=== PATIENT | female | born 2000 | race African-American/Black ===

== ENCOUNTER 2022-07-02 01:09 | Inpatient (IN) | payer OTHER ==
[~2022-07-02] VITALS: Ht 162.6 cm; Wt 64.0 kg
[2022-07-02 03:14] LABS: HEMATOCRIT. 28.5 % (36.0-48.0); HEMOGLOBIN. 9.2 g/dL (12.0-16.0); MEAN CORPUSCULAR HEMOGLOBIN 23.3 pg (28.0-32.0); MEAN PLATELET VOLUME 7.4 fl (7.4-10.4); PLATELET 424 x1000/uL (130-400); RED BLOOD CELL COUNT 3.96 mill/uL (4.2-5.4); RED CELL DISTRIBUTION WIDTH 17.1 % (11.6-14.6)
[2022-07-02 03:20] LABS: CLARITY URINE CLOUDY (CLEAR); COLOR URINE YELLOW (YELLOW); KETONES URINE TRACE (NEGATIVE); LEUKOCYTE ESTERASE URINE 2+ (NEGATIVE); NITRITE URINE NEGATIVE (NEGATIVE); OCCULT BLOOD URINE 3+ (NEGATIVE); PH URINE 6.5 (4.5-8.0); PROTEIN URINE 1+ (NEGATIVE); SPECIFIC GRAVITY URINE 1.019 (1.005-1.030)
[2022-07-02 03:27] LABS: CHLORIDE 106 mEq/L (98-107)
[2022-07-02 03:31] LABS: *AMPHETAMINES SCREEN URINE NEGATIVE (NEGATIVE); *BARBITURATES SCREEN URINE NEGATIVE (NEGATIVE); *BENZODIAZEPINES SCREEN URINE NEGATIVE (NEGATIVE); CANNABINOID URINE SCREEN NEGATIVE (NEGATIVE); METHADONE URINE SCREEN NEGATIVE (NEGATIVE); OPIATES URINE SCREEN NEGATIVE (NEGATIVE); PHENCYCLIDINE URINE SCREEN NEGATIVE (NEGATIVE)
[2022-07-02] MEDS: LACTATED RINGERS 1,000 ML IV SCH ×2 (03:36→07:07)
[2022-07-02 03:50] LABS: INR 0.9; PARTIAL THROMBOPLASTIN TIME 28.4 sec (23.4-31.0); PROTHROMBIN TIME 10.1 sec (9.6-11.0)
[2022-07-02 03:55] LABS: *COCAINE SCREEN URINE PRESUMTIVE POSITIVE (NEGATIVE)
[2022-07-02] MEDS ORDERED: AMPICILLIN 2GM in NS 100ML 100 ML IV SCH (05:15)
[2022-07-02] MEDS ORDERED: CARBOPROST TROMETHAMINE 250 MCG/ML AMPUL IM PRN (05:15)
[2022-07-02] MEDS ORDERED: METHYLERGONOVINE MALEATE 0.2 MG/ML IM PRN (05:15)
[2022-07-02] MEDS ORDERED: NALOXONE HCL 0.4 MG/ML 1ML VIAL IM PRN (05:15)
[2022-07-02] MEDS ORDERED: LACTATED RINGERS 1,000 ML IV SCH ×2 (05:15→13:00)
[2022-07-02] MEDS ORDERED: LIDOCAINE HCL 1% 20ML VIAL (Pyxis) INJ INFIL SCH (05:15)
[2022-07-02] MEDS ORDERED: BETAMETHASONE ACET/BETAMET 30 MG/5 ML VIAL IM ONE (05:30)
[2022-07-02] MEDS: MAGNESIUM 20 G PREMIX (L & D) 500 ML IV SCH ×4 (06:29→23:44)
[2022-07-02] MEDS: AZITHROMYCIN 500 MG in DEXT 5% WATER 250 ML IV SCH (07:21)
[2022-07-02 08:16] LABS: PLATELET ESTIMATE SLIGHTLY INCREASED
[2022-07-02] MEDS: AMPICILLIN 1,000 MG in SODIUM CHLORIDE 0.9% 50 ML IV SCH (12:29)
[2022-07-02 12:47] LABS: HEPATITIS B SURFACE ANTIGEN NEGATIVE
[2022-07-03] MEDS: AMPICILLIN 1,000 MG in SODIUM CHLORIDE 0.9% 50 ML IV SCH ×4 (05:40→21:21)
[2022-07-03] MEDS ORDERED: BETAMETHASONE ACET/BETAMET 30 MG/5 ML VIAL IM ONE (06:15)
[2022-07-03] MEDS: AZITHROMYCIN 500 MG in DEXT 5% WATER 250 ML IV SCH (06:33)
[2022-07-03] MEDS: LACTATED RINGERS 1,000 ML IV SCH ×2 (09:23→21:22)
[2022-07-03] MEDS ORDERED: LIDOCAINE HCL 1% 20ML VIAL (Pyxis) INJ INFIL NR (20:30)
[2022-07-03] MEDS ORDERED: NALOXONE HCL 0.4 MG/ML 1ML VIAL IM PRN ×2 (20:30)
[2022-07-03] MEDS ORDERED: METHYLERGONOVINE MALEATE 0.2 MG/ML IM PRN ×2 (20:30)
[2022-07-03] MEDS ORDERED: CARBOPROST TROMETHAMINE 250 MCG/ML AMPUL IM PRN ×2 (20:30)
[2022-07-03] MEDS ORDERED: LIDOCAINE HCL 1% 20ML VIAL (Pyxis) INJ INFIL SCH (20:30)
[2022-07-03] MEDS: OXYTOCIN 30 UNITS/500ML NS PMX 500 ML IV SCH (20:36)
[2022-07-03] MEDS ORDERED: IBUPROFEN 800MG TABLET PO PRN (22:30)
[2022-07-03] MEDS ORDERED: IBUPROFEN 400MG TABLET PO PRN (22:30)
[2022-07-03] MEDS ORDERED: RHO(D) IMMUNE GLOBULIN 300 MCG/SYR IM PRN (22:30)
[2022-07-03] MEDS ORDERED: DIPHENHYDRAMINE 25MG CAPSULE PO PRN (22:30)
[2022-07-03] MEDS: SULFAMETHOXAZOLE/TRIMETHOPRIM 800/160MG TABLET PO SCH (23:11)
[2022-07-04 00:05] VITALS: BP 126/67
[2022-07-04] MEDS: OXYTOCIN 30 UNITS/500ML NS PMX 500 ML IV SCH (00:18)
[2022-07-04 00:35] VITALS: BP 117/58
[2022-07-04 04:00] VITALS: BP 122/65
[2022-07-04 06:46] LABS: HEMATOCRIT. 27.7 % (36.0-48.0); HEMOGLOBIN. 8.6 g/dL (12.0-16.0); MEAN CORPUSCULAR HEMOGLOBIN 22.5 pg (28.0-32.0); MEAN CORPUSCULAR VOLUME 72.4 fL (81.0-99.0); MEAN PLATELET VOLUME 7.5 fl (7.4-10.4); PLATELET 417 x1000/uL (130-400); RED BLOOD CELL COUNT 3.82 mill/uL (4.2-5.4); RED CELL DISTRIBUTION WIDTH 17.1 % (11.6-14.6)
[2022-07-04 08:10] VITALS: BP 120/60
[2022-07-04] MEDS ORDERED: ACETAMINOPHEN 325MG TABLET PO PRN (08:45)
[2022-07-04] MEDS: SULFAMETHOXAZOLE/TRIMETHOPRIM 800/160MG TABLET PO SCH ×2 (08:57→20:32)
[2022-07-04 16:30] VITALS: BP 127/74
[2022-07-04 18:30] LABS: NUCLEATED RED BLOOD CELLS 1 /100 WBC
[2022-07-04 18:31] LABS: PLATELET ESTIMATE SLIGHTLY INCREASED
[2022-07-04 20:00] VITALS: BP 120/72
[2022-07-05 04:01] VITALS: BP_SYST 108; BP_SYST 122; BP_DIAS 56; BP_DIAS 60
[2022-07-05 06:50] LABS: HEMATOCRIT. 30.6 % (36.0-48.0); HEMOGLOBIN. 9.6 g/dL (12.0-16.0); MEAN CORPUSCULAR HEMOGLOBIN 22.9 pg (28.0-32.0); MEAN CORPUSCULAR VOLUME 73.3 fL (81.0-99.0); MEAN PLATELET VOLUME 7.6 fl (7.4-10.4); PLATELET 435 x1000/uL (130-400); RED BLOOD CELL COUNT 4.18 mill/uL (4.2-5.4); RED CELL DISTRIBUTION WIDTH 17.3 % (11.6-14.6)
[2022-07-05 07:30] VITALS: BP 101/44
[2022-07-05] MEDS: SULFAMETHOXAZOLE/TRIMETHOPRIM 800/160MG TABLET PO SCH (08:05)
[2022-07-05 22:58] LABS: PLATELET ESTIMATE INCREASED
[2022-07-09 06:40] LABS: COCAINE CONFIRMATION URINE Positive (.)
== END 2022-07-05 14:45 | disposition left against medical advice (07) | DRG 560 ==
LOC: 8 EST LDRP 01:09 → OBSVTOIN 01:09 → 8EST 07-03 23:52
PROVIDERS: ADMIT Obstetrics & Gynecology; ATTEND Obstetrics & Gynecology
PROC: 10E0XZZ Delivery of Products of Conception, External Approach (ICD-10-PCS; principal; 2022-07-03)
DX: O41.03X0 Oligohydramnios, third trimester, not applicable or unspecified (principal); Z37.0 Single live birth; I31.39 Other pericardial effusion (noninflammatory); O60.14X0 Preterm labor third trimester with preterm delivery third trimester, not applicable or unspecified; O99.324 Drug use complicating childbirth; O77.0 Labor and delivery complicated by meconium in amniotic fluid; O99.52 Diseases of the respiratory system complicating childbirth; O42.913 Preterm premature rupture of membranes, unspecified as to length of time between rupture and onset of labor, third trimester; F14.10 Cocaine abuse, uncomplicated; Z3A.32 32 weeks gestation of pregnancy; Z53.29 Procedure and treatment not carried out because of patient's decision for other reasons; Z20.822 Contact with and (suspected) exposure to COVID-19
CPT/HCPCS: 36415; 76805; 76818; 80053; 80305; 80353; 81003; 83735; 84550; 85025; 85384; 86592; 86703; 86762; 86850; 86900; 87340; 87426; 99281; J0290; J0456; J0702; J3475; J3490; J7060; J7120; A4315; J2590